=== PATIENT | male | born 1970 | race African-American/Black ===

== ENCOUNTER 2016-08-31 14:22 | Outpatient (RCR) ==
[2016-05-19 14:08] VITALS: BMI 31.0
--- NOTE | 2016-09-02 16:37 | RS.OPPTDN ---
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 States he does not know why he is coming today because he is not any better. Reports continued pain and lack of strength to the L UE. He says he needs to reschedule an appt with MD. Pain Assessment - Pain Description Pain Location: left lateral epicondyle, forearm Pain Description: increased fatigue Current Pain Intensity: elevated - Treatment Modality: Ultrasound Parameters/Method Applied: phonophoresis with hydrocortisone @ 1.5 w/cm2 x 12 mins to the L lateral lower arm, lateral epicondyle, and just proximal to the lateral epicondyle. Also, performed x 5 mins pulsed @ 0.8 w/cm2. Interventions - Exercise/Activities/Manual Therapy Exercises/Activities: Reviewed HEP. Reassessed sewer pipe sorter at now 5-10# 2 trials at 2nd position. This is worse than last measurement last week. Manual Therapy: na HOME EXERCISE PROGRAM: Passive stretches to wrist extensors,and self reji friction massage. - Charges Total Direct Minutes: 20 Total Treatment Time: 20 Procedures billed for this date of service:: usx1 Assessment: Patient with no significant change in pain or strength. He maintains inability to perform weights/exercises for prolonged amount of time to simulate work duties without flare of pain or needing to stop. Freight Flagman strength is worse today than last measurement last week. Freight Flagman is taken before exercise on treatment dates and after to verify any improvement. Patient very frustrated and wants to return to work, but acknowledges he needs to be able to perform far more strengthening exercises and duties than what he is able to beatrice presently. We have modified treatments several times without justification to continue at this time. He needs to return to the MD to determine what other treatments/procedures need to be performed. Patient Education: Education of diagnosis, Body/Joint mechanics, Home Exercise Program, Home Safety, Activity Modification, Education of Plan of Care Short Term Goals Goal #1: Swelling at left elbow decreased to minimal. Goal to be met by: 07/03/16 Progress towards Goal:: Met Goal #2: Left sewer pipe sorter strength increased to 15 lbs. Goal to be met by: 07/03/16 Progress towards Goal:: Regressing Goal #3: Pain in left elbow with light activity decreased to <5/10. Goal to be met by: 07/03/16 Progress towards Goal:: Regressing Goal #4: Patient independent and compliant with basic HEP. Goal to be met by: 07/03/16 Progress towards Goal:: Partially Met (due to pain) Shirt Maker Goals Goal #1: Patient able to use left LE for all selfcare and ADL's without pain. Goal to be met by: 09/11/16 Progress towards goal: Progressing Goal #2: Score on UE Functional scale to demontrates <20% impairment. Goal to be met by: 09/11/16 Progress towards goal: Progressing Goal #3: Left UE to demontrate functional muscle strength to perform all activities. Goal to be met by: 09/11/16 Progress towards goal: Progressing Goal #4: Patient able to return to work without limitation. Goal to be met by: 09/11/16 Progress towards goal: No Change Plan PLAN OF CARE EXPIRES ON:: 09/11/16 ORDER # VISITS AND/OR THROUGH DATE: 09/11/16 PLAN: Plan for Discharge
--- NOTE | 2016-09-28 14:25 | RS.QUICKDC ---
Discharge from PT Date of Discharge: 09/28/16 Number of Visits: 20 Reason for Discharge: Patient had completed original orders and a continuation approved by work comp. Patient had no significant improvement regarding the L elbow. He maintained moderate pain and weakness despite modification of treatment from u/s, class 4 laser, and phonophoresis using hydrocortisone. He had received stretching and strengthening exercises for the L UE including tbands, weights, and static gripping to simulate particular job duties he was concerned about. 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 He was adament against surgery and local injection and we had come to a point in which he had plateaued. Treatment was discontinued at that time and we did refer him back to his orthopaedic for further assessment. See daily notes for specific treatment.
== END 2016-09-29 ==
PROVIDERS: ATTEND Orthopaedic Surgery
DX: M77.12 Lateral epicondylitis, left elbow (principal)

== ENCOUNTER → 2016-10-27 | Outpatient (RCR) ==
[2016-05-19 14:08] VITALS: BMI 31.0
--- NOTE | 2016-10-28 13:55 | RS.OPPTEV2 ---
Date of Note: 10/27/16 Visit #: 1 Date of Evaluation: 10/27/16 Payer Source: Workman's Comp Date of Onset/Injury/Change in Status: 04/29/16 Treatment Diagnosis: Left lateral epicondylitis of the left elbow, left elbow pain History of Condition/Mechanism of Injury:: Patient states he hurt the left UE while at work. States he was picking up a grate and a hook broke and it jerked his arm. He received Outpatient PT in our department May-July 2016 without full resolution of symptoms. Since then he has received a cortisone injection in the left elbow. Prior Level of Function.....Patient was independent with: ADL's, Self Care, Work /Vocation, Caregiving, Ambulation/Mobility, Community Integration/Access Functional Limitations: Sleep, Self Care, ADL's, Reaching, Pushing, Pulling, Lifting, Carrying, Community Access/Integration Current Subjective/complaints:: Patient reports continued left elbow pain with any lifting. He is left hand dominant and states he has pain when performing selfcare and ADL's with the left UE ,due to pain. Reports the injection he received helped slightly. Reports he continues to wear his brace. States wearing the brace is the only way he can sleep at night. He is unable to lay on the left arm. He denies tingling or numbness in the left elbow, forearm, or hand. States most of his discomfort is at the elbow and down into the forearm. Reports an area of tenderness at the elbow. He has continued to ice the elbow , which helps decrease his pain. States he has had a second MRI of the elbow, but his does not recall exactly what the doctor said it showed. Treatment Side (optional): Left Medical History Medical History: Hypertension, Diabetes Smoking Status: Current some day smoker Diagnostic Testing/Imaging:: Called for copy of 2nd MRI of the left elbow. Patient's Goals: His goal is to get relief of left elbow pain and to be able to use the left UE without pain. Pain Assessment - Pain Description Pain Location: left lateral epicondyle, forearm Pain Description: Sharp (at times), Aching Current Pain Intensity: 6/10 Worst Pain Intensity: 10/10 Functional Outcome Measure UE Functional Index: 56 (56/80=30% impairment) - G Codes & Severity Modifier G Codes & Modifier: NA Source of G Code score: NA Observation - Observation Handedness: Left Girth Measurement Upper: Lateral epicondyle: Left 29 cm, right 28.5 cm Elbow ROM: Right WFL's Elbow Muscle Strength: Right WFL's - Left Elbow ROM Comments: left elbow flexion and extension WFL's. Supination and pronation is WFL's with discomfort throughout supination and at end-range pronation. - Left Elbow Strength Left Elbow Extension: 4+ Good + (slight discomfort with resistance) Left Elbow Flexion: 4+ Good + Left Forearm Pronation: 4 Good Left Forearm Supination: 4 Good Comments: Slight discomfort reported with resisted supination and pronation. Wrist ROM: Bilaterally WFL's - Left Wrist Strength Left Wrist Extension: 4 Good Left Wrist Flexion: 4 Good Quiller Operator Strength Left Hand Quiller Operator Strength: 8 lbs. Dynamometer Testing Position: 2nd Position Palpation Comments:: Patient reports tenderness over the left lateral epicondyle and just superior to the lateral epicondyle. Sensation - Sensation Right Upper Extremity: Intact/Normal Left Upper Extremity: Intact/Normal - Heat/Cryotherapy Treatment: Cryotherapy (X 4 mins) Comments:: ice massage over the left lateral epicondyle Interventions - Exercise/Activities/Manual Therapy Exercises/Activities: NA Manual Therapy: Received Transverse Friction massage over wrist extensor tendons at the lateral epicondyle X 7 mins. HOME EXERCISE PROGRAM: None given at evaluation. - Charges Total Direct Minutes: 55 mins Total Treatment Time: 55 mins Procedures billed for this date of service:: RACHEL Rowell, manual therapy Assessment Assessment: Patient presents with continued left elbow pain. He exhibits decreased wrist and belt fixer strength. He reports pain with any lifting using the left UE. He demonstrates potential to benefit from manual therapy of Transverse Friction Massage and strengthening to increase functional use of left UE. Patient Education: Education of diagnosis, Body/Joint mechanics, Home Safety, Education of Plan of Care Rehab Potential: Good Short Term Goals Goal #1: Pt independent with HEP. Goal to be met by: 11/11/16 Goal #2: Left belt fixer strength increased to 20 lbs. Goal to be met by: 11/11/16 Goal #3: Pain in left elbow with light activity decreased to <2/10. Goal to be met by: 11/11/16 Goal #4: Left wrist strength 4+/5. Goal to be met by: 11/11/16 Fdc Goals Goal #1: Patient able to use left LE for all selfcare and ADL's without pain. Goal to be met by: 12/02/16 Goal #2: Score on UE Functional scale to demontrates <10% impairment. Goal to be met by: 12/02/16 Goal #3: Left UE to demontrate functional muscle strength to perform all activities. Goal to be met by: 12/02/16 Goal #4: Patient able to return to work without limitation. Goal to be met by: 12/02/16 Plan - Treatment to be Provided Procedures: Therapeutic Exercises, Therapeutic Activity, Manual Therapy, Patient Education Modalities: Electrical Stimulation, Ultrasound/Phonophoresis, Class IV Laser, Cryotherapy - Treatment Plan Frequency: 3 X week Duration: 4 weeks ORDER # VISITS AND/OR THROUGH DATE: 12/02/16 - Treatment Code (1) Elbow pain Qualifiers: Laterality: left Qualified Description: Left elbow pain Qualifier Code(s): (M25.522) Pain in left elbow (2) Decreased belt fixer strength of left hand Comments: M62.81
== END ==
PROVIDERS: ATTEND Orthopaedic Surgery
DX: M77.12 Lateral epicondylitis, left elbow (principal)

== ENCOUNTER 2016-11-20 09:00 | Outpatient (RCR) ==
[2016-05-19 14:08] VITALS: BMI 31.0
--- NOTE | 2016-10-29 11:12 | RS.OPPTDN ---
Subjective Date of Note: 10/29/16 Visit #: 2 Date of Evaluation: 10/27/16 Payer Source: Workman's Comp Treatment Diagnosis: Left lateral epicondylitis of the left elbow Current Subjective/complaints:: Patient states left elbow is sore and stiff in the morning. Reports discomfort during friction massage and with stretching. Pain Assessment - Pain Description Pain Location: left lateral epicondyle, forearm Pain Description: sore - Heat/Cryotherapy Treatment: Cryotherapy (ice massage over lateral epicondyle/wrist extensor tendons X 5 mins) Interventions - Exercise/Activities/Manual Therapy Exercises/Activities: Passive stretchinig to left wrist extensors following transverse friction massage. Total minutes of Exercise: X 4 mins Manual Therapy: Transverse Friction Massage X 14 mins to left wrist extensor tendons at lateral epicondyle. HOME EXERCISE PROGRAM: Passive stretches to wrist extensors,and self reji friction massage. - Charges Total Direct Minutes: 18 mins Total Treatment Time: 23 mins Procedures billed for this date of service:: Manual therapy, CP Assessment: Patient tolerates friction massage well, although does demonstrate facial grimacing and reports discomfort. Continued treatment should help decrease his pain with use of the left UE. Patient Education: Education of diagnosis, Body/Joint mechanics, Education of Plan of Care Short Term Goals Goal #1: Pt independent with HEP. Goal to be met by: 11/11/16 Goal #2: Left lawn service manager strength increased to 20 lbs. Goal to be met by: 11/11/16 Goal #3: Pain in left elbow w light activity decreased to <2/10. Goal to be met by: 11/11/16 Goal #4: Left wrist strength 4+/5. Goal to be met by: 11/11/16 Design Engineer Agricultural Equipment Goals Goal #1: Patient able to use left LE for all selfcare and ADL's without pain. Goal to be met by: 12/02/16 Goal #2: Score on UE Functional scale to demontrates <10% impairment. Goal to be met by: 12/02/16 Goal #3: Left UE to demontrate functional muscle strength to perform all activities. Goal to be met by: 12/02/16 Goal #4: Patient able to return to work without limitation. Goal to be met by: 12/02/16 Plan PLAN OF CARE EXPIRES ON:: 12/02/16 ORDER # VISITS AND/OR THROUGH DATE: 12/02/16 PLAN: Continue Plan of Care
--- NOTE | 2016-10-30 11:24 | RS.OPPTDN ---
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 Pain Assessment - Pain Description Pain Location: left lateral epicondyle, forearm Pain Description: sore Current Pain Intensity: not rated today - Heat/Cryotherapy Treatment: Cryotherapy (ice massage x 10 mins. prior to manual therapy) Interventions - Exercise/Activities/Manual Therapy Exercises/Activities: NA Total minutes of Exercise: 0 Manual Therapy: Transverse Friction Massage X 15 mins to left wrist extensor tendons at lateral epicondyle,combined with 10 more mins. of wrist supination/ pronation ,gripping motion. Total minutes of Manual Therapy: 25 HOME EXERCISE PROGRAM: Passive stretches to wrist extensors,and self reji friction massage. - Charges Total Direct Minutes: 25 Total Treatment Time: 35 Procedures billed for this date of service:: cp,manual therapy 2 Assessment: Patient reports tenderness with palpation of the olecranon fossa today,more than the extensor tendon region.He tolerates resisted wrist extension with report of moderate pain today,less pain with pronation per his report.He is attentive to recommendations regarding pain control and HEP. Patient Education: Education of diagnosis, Body/Joint mechanics, Home Exercise Program, Home Safety, Activity Modification, Education of Plan of Care Patient demonstrates compliance with HEP?: Yes Short Term Goals Goal #1: Pt independent with HEP. Goal to be met by: 11/11/16 Progress towards Goal:: Progressing Goal #2: Left able bodied seaman strength increased to 20 lbs. Goal to be met by: 11/11/16 Goal #3: Pain in left elbow w light activity decreased to <2/10. Goal to be met by: 11/11/16 Goal #4: Left wrist strength 4+/5. Goal to be met by: 11/11/16 Bead Trimmer Goals Goal #1: Patient able to use left LE for all selfcare and ADL's without pain. Goal to be met by: 12/02/16 Goal #2: Score on UE Functional scale to demontrates <10% impairment. Goal to be met by: 12/02/16 Goal #3: Left UE to demontrate functional muscle strength to perform all activities. Goal to be met by: 12/02/16 Goal #4: Patient able to return to work without limitation. Goal to be met by: 12/02/16 Plan PLAN OF CARE EXPIRES ON:: 12/02/16 ORDER # VISITS AND/OR THROUGH DATE: 12/02/16 PLAN: Continue Plan of Care
--- NOTE | 2016-11-02 11:55 | RS.OPPTDN ---
Subjective Date of Note: 11/02/16 Visit #: 4 Date of Evaluation: 10/27/16 Payer Source: Workman's Comp Treatment Diagnosis: Left lateral epicondylitis of the left elbow Current Subjective/complaints:: Reports the L elbow is throbbing more today. Pain Assessment - Pain Description Pain Location: left lateral epicondyle, forearm Pain Description: sore Current Pain Intensity: not rated today - Heat/Cryotherapy Treatment: Cryotherapy (15 mins. after exercises) Interventions - Exercise/Activities/Manual Therapy Exercises/Activities: 30 mins total,beginning with dethistler operator strength testing,R dethistler operator @ 85 #,L dethistler operator strength @ 20#.Digiflex @ 3#,increased to 9#,multiple reps.Wrist roll-up with 4# ,multiple reps.HEP review. Total minutes of Exercise: 30 Manual Therapy: NA Total minutes of Manual Therapy: 0 HOME EXERCISE PROGRAM: Passive stretches to wrist extensors,and self reji friction massage. - Charges Total Direct Minutes: 30 Total Treatment Time: 45 Procedures billed for this date of service:: cp,ex 2 Assessment: Patient's L dethistler operator strenght increased since evaluation,but he continues to report increased pain as the exercises progress,along with being tender to palpate the common extensor tendon site and the olecranon fossa. Patient Education: Body/Joint mechanics, Home Exercise Program, Education of Plan of Care Patient demonstrates compliance with HEP?: Yes Short Term Goals Goal #1: Pt independent with HEP. Goal to be met by: 11/11/16 Progress towards Goal:: Progressing Goal #2: Left dethistler operator strength increased to 20 lbs. Goal to be met by: 11/11/16 Progress towards Goal:: Met Goal #3: Pain in left elbow w light activity decreased to <2/10. Goal to be met by: 11/11/16 Goal #4: Left wrist strength 4+/5. Goal to be met by: 11/11/16 Progress towards Goal:: Progressing Switchboard Mechanic Goals Goal #1: Patient able to use left LE for all selfcare and ADL's without pain. Goal to be met by: 12/02/16 Goal #2: Score on UE Functional scale to demontrates <10% impairment. Goal to be met by: 12/02/16 Goal #3: Left UE to demontrate functional muscle strength to perform all activities. Goal to be met by: 12/02/16 Goal #4: Patient able to return to work without limitation. Goal to be met by: 12/02/16 Plan PLAN OF CARE EXPIRES ON:: 12/02/16 ORDER # VISITS AND/OR THROUGH DATE: 12/02/16 PLAN: Continue Plan of Care
--- NOTE | 2016-11-04 12:01 | RS.OPPTDN ---
Subjective Date of Note: 11/04/16 Visit #: 5 Date of Evaluation: 10/27/16 Payer Source: Workman's Comp Treatment Diagnosis: Left lateral epicondylitis of the left elbow Current Subjective/complaints:: Reports the pain is about the same,still has morning stiffness and occasional tingling in the L forearm. Pain Assessment - Pain Description Pain Location: left lateral epicondyle, forearm Pain Description: Tightness, Radiating, Throbbing, Aching Pain Description: sore Current Pain Intensity: not rated today - Heat/Cryotherapy Treatment: Cryotherapy (15 mins. after exercises) Interventions - Exercise/Activities/Manual Therapy Exercises/Activities: 30 mins total,beginning with cream buyer strength testing,R cream buyer @ 85 #,L cream buyer strength @ 20#.Digiflex @ 3#,increased to 9#,multiple reps.Wrist roll-up with 4# ,multiple reps.L cream buyer strength @ 10 # after exercises. Total minutes of Exercise: 30 Manual Therapy: NA HOME EXERCISE PROGRAM: Passive stretches to wrist extensors,and self reji friction massage. - Charges Total Direct Minutes: 30 Total Treatment Time: 50 Procedures billed for this date of service:: ex 2,cp Assessment: Patient has significantly less cream buyer strength today after exercises.He still has tenderness to palpate the L elbow and common extensor tendon site.He is very attentive to recommendations regarding joint protection and pain management. Patient Education: Education of diagnosis, Body/Joint mechanics, Home Exercise Program, Home Safety, Activity Modification, Education of Plan of Care Patient demonstrates compliance with HEP?: Yes Short Term Goals Goal #1: Pt independent with HEP. Goal to be met by: 11/11/16 Progress towards Goal:: Partially Met Goal #2: Left cream buyer strength increased to 20 lbs. Goal to be met by: 11/11/16 (not consistent today lesens after exercises) Progress towards Goal:: Regressing Goal #3: Pain in left elbow w light activity decreased to <2/10. Goal to be met by: 11/11/16 Progress towards Goal:: No Change Goal #4: Left wrist strength 4+/5. Goal to be met by: 11/11/16 Progress towards Goal:: Partially Met Stick Roller Goals Goal #1: Patient able to use left LE for all selfcare and ADL's without pain. Goal to be met by: 12/02/16 Progress towards goal: No Change Goal #2: Score on UE Functional scale to demontrates <10% impairment. Goal to be met by: 12/02/16 Goal #3: Left UE to demontrate functional muscle strength to perform all activities. Goal to be met by: 12/02/16 Goal #4: Patient able to return to work without limitation. Goal to be met by: 12/02/16 Plan PLAN OF CARE EXPIRES ON:: 12/02/16 ORDER # VISITS AND/OR THROUGH DATE: 12/02/16 PLAN: Continue Plan of Care
--- NOTE | 2016-11-06 11:24 | RS.OPPTDN ---
Subjective Date of Note: 11/06/16 Visit #: 6 Date of Evaluation: 10/27/16 Payer Source: Workman's Comp Treatment Diagnosis: Left lateral epicondylitis of the left elbow Current Subjective/complaints:: Patient reports the pain today is also in the biceps and up into the L shoulder. Pain Assessment - Pain Description Pain Location: left lateral epicondyle, forearm Pain Description: Tightness, Radiating, Throbbing, Aching Pain Description: sore Current Pain Intensity: not rated today - Heat/Cryotherapy Treatment: Cryotherapy (15 mins. prior to manual therapy) Interventions - Exercise/Activities/Manual Therapy Exercises/Activities: NA Total minutes of Exercise: 0 Manual Therapy: 25 mins. cross friction to common extensor tendon site after ice massage. Total minutes of Manual Therapy: 25 HOME EXERCISE PROGRAM: Passive stretches to wrist extensors,and self cross- friction massage. - Charges Total Direct Minutes: 25 Total Treatment Time: 40 Procedures billed for this date of service:: cp,manual 2 Assessment: No significant change today,continues to have tenderness to palpate the olecranon fossa and the common extensor tendon site. Patient Education: Education of diagnosis, Body/Joint mechanics, Home Exercise Program, Home Safety, Activity Modification, Education of Plan of Care Patient demonstrates compliance with HEP?: Yes Short Term Goals Goal #1: Pt independent with HEP. Goal to be met by: 11/11/16 Progress towards Goal:: Partially Met Goal #2: Left parachute crown sewer strength increased to 20 lbs. Goal to be met by: 11/11/16 (N/A today) Goal #3: Pain in left elbow w light activity decreased to <2/10. Goal to be met by: 11/11/16 Progress towards Goal:: No Change Goal #4: Left wrist strength 4+/5. Goal to be met by: 11/11/16 Progress towards Goal:: Partially Met Degreasing Solution Mixer Goals Goal #1: Patient able to use left LE for all selfcare and ADL's without pain. Goal to be met by: 12/02/16 Progress towards goal: No Change Goal #2: Score on UE Functional scale to demontrates <10% impairment. Goal to be met by: 12/02/16 Goal #3: Left UE to demontrate functional muscle strength to perform all activities. Goal to be met by: 12/02/16 Goal #4: Patient able to return to work without limitation. Goal to be met by: 12/02/16 Plan PLAN OF CARE EXPIRES ON:: 12/02/16 ORDER # VISITS AND/OR THROUGH DATE: 12/02/16 PLAN: Continue Plan of Care
--- NOTE | 2016-11-10 11:19 | RS.OPPTDN ---
Subjective Date of Note: 11/10/16 Visit #: 7 Date of Evaluation: 10/27/16 Payer Source: Workman's Comp Treatment Diagnosis: Left lateral epicondylitis of the left elbow Current Subjective/complaints:: Patient reports no change in the L elbow. Pain Assessment - Pain Description Pain Location: left lateral epicondyle, forearm Pain Description: Tightness, Radiating, Throbbing, Aching Pain Description: sore Current Pain Intensity: not rated today - Heat/Cryotherapy Treatment: Cryotherapy (15 mins.ice massage prior to manual therapy) Interventions - Exercise/Activities/Manual Therapy Exercises/Activities: 10 mins. passive stretches to L wrist extensors/flexors Total minutes of Exercise: 10 Manual Therapy: 20 mins. cross friction to common extensor tendon site after ice massage. Total minutes of Manual Therapy: 20 HOME EXERCISE PROGRAM: Passive stretches to wrist extensors,and self cross- friction massage. - Charges Total Direct Minutes: 45 Total Treatment Time: 45 Procedures billed for this date of service:: cp,manual,ex 1 Assessment: Patient continues to be tender to palpate the L olecranon fossa area ,and the common extensor tendon site.He is compliant to HEP as tolerated. Patient Education: Education of Plan of Care Patient demonstrates compliance with HEP?: Yes Short Term Goals Goal #1: Pt independent with HEP. Goal to be met by: 11/11/16 Progress towards Goal:: Partially Met Goal #2: Left sheet metal former strength increased to 20 lbs. Goal to be met by: 11/11/16 (24) Progress towards Goal:: Met Goal #3: Pain in left elbow w light activity decreased to <2/10. Goal to be met by: 11/11/16 Progress towards Goal:: No Change Goal #4: Left wrist strength 4+/5. Goal to be met by: 11/11/16 Progress towards Goal:: Partially Met Drum Filler Goals Goal #1: Patient able to use left LE for all selfcare and ADL's without pain. Goal to be met by: 12/02/16 Progress towards goal: No Change Goal #2: Score on UE Functional scale to demontrates <10% impairment. Goal to be met by: 12/02/16 Goal #3: Left UE to demontrate functional muscle strength to perform all activities. Goal to be met by: 12/02/16 (increased sheet metal former strength) Progress towards goal: Progressing Goal #4: Patient able to return to work without limitation. Goal to be met by: 12/02/16 Plan PLAN OF CARE EXPIRES ON:: 12/02/16 ORDER # VISITS AND/OR THROUGH DATE: 12/02/16 PLAN: Continue Plan of Care
--- NOTE | 2016-11-11 11:27 | RS.OPPTDN ---
Subjective Date of Note: 11/11/16 Visit #: 8 Date of Evaluation: 10/27/16 Payer Source: Workman's Comp Treatment Diagnosis: Left lateral epicondylitis of the left elbow Current Subjective/complaints:: Patient reports his 4th and 5th fingers are tingling this mornng.He reports temporary relief only from yesterday's PT session. Pain Assessment - Pain Description Pain Location: left lateral epicondyle, forearm Pain Description: Tightness, Radiating, Throbbing, Aching Pain Description: sore Current Pain Intensity: not rated today - Heat/Cryotherapy Treatment: Cryotherapy (15 mins. ice massage prior to manual therapy) Interventions - Exercise/Activities/Manual Therapy Exercises/Activities: N/A Total minutes of Exercise: 0 Manual Therapy: 25 mins. cross friction to common extensor tendon site after ice massage. Total minutes of Manual Therapy: 25 HOME EXERCISE PROGRAM: Passive stretches to wrist extensors,and self cross- friction massage. - Charges Total Direct Minutes: 25 Total Treatment Time: 40 Procedures billed for this date of service:: cp,manual therapy 2 Assessment: No significant change today,but patient continues to be very compliant to all recommendations regarding HEP,joint protection ,and pain management. Patient Education: Education of diagnosis, Body/Joint mechanics, Home Exercise Program, Home Safety, Activity Modification, Education of Plan of Care Patient demonstrates compliance with HEP?: Yes Short Term Goals Goal #1: Pt independent with HEP. Goal to be met by: 11/11/16 Progress towards Goal:: Partially Met Goal #2: Left carpet technician strength increased to 20 lbs. Goal to be met by: 11/11/16 (24) Progress towards Goal:: Met Goal #3: Pain in left elbow w light activity decreased to <2/10. Goal to be met by: 11/11/16 Progress towards Goal:: No Change Goal #4: Left wrist strength 4+/5. Goal to be met by: 11/11/16 Progress towards Goal:: Partially Met [facility] Goals Goal #1: Patient able to use left LE for all selfcare and ADL's without pain. Goal to be met by: 12/02/16 Progress towards goal: No Change Goal #2: Score on UE Functional scale to demontrates <10% impairment. Goal to be met by: 12/02/16 Goal #3: Left UE to demontrate functional muscle strength to perform all activities. Goal to be met by: 12/02/16 (increased carpet technician strength) Progress towards goal: No Change Goal #4: Patient able to return to work without limitation. Goal to be met by: 12/02/16 Progress towards goal: Not Met Plan PLAN OF CARE EXPIRES ON:: 12/02/16 ORDER # VISITS AND/OR THROUGH DATE: 12/02/16 PLAN: Continue Plan of Care
--- NOTE | 2016-11-13 11:24 | RS.OPPTDN ---
Subjective Date of Note: 11/13/16 Visit #: 9 Date of Evaluation: 10/27/16 Payer Source: Workman's Comp Treatment Diagnosis: Left lateral epicondylitis of the left elbow Current Subjective/complaints:: Patient reports the L elbow is hurting more today,as compared to yesterday. Pain Assessment - Pain Description Pain Location: left lateral epicondyle, forearm Pain Description: Tightness, Radiating, Throbbing, Aching Pain Description: sore Current Pain Intensity: 8/10 - Heat/Cryotherapy Treatment: Cryotherapy (20 mins. ice massage to L elbow) Interventions - Exercise/Activities/Manual Therapy Exercises/Activities: N/A Total minutes of Exercise: 0 Manual Therapy: 20 mins. cross friction to common extensor tendon site after ice massage. Total minutes of Manual Therapy: 20 HOME EXERCISE PROGRAM: Passive stretches to wrist extensors,and self cross- friction massage. - Objective Findings Observations,measurements,etc.: L writing manager strength decreased to 18# today,was 24-25 # when last tested. - Charges Total Direct Minutes: 20 Total Treatment Time: 40 Procedures billed for this date of service:: cp,manual Assessment: Patient has less writing manager strength today when tested,increased tenderness to palpate the lateral epicondyle area and has trigger point tenderness in the wrist extensors.He is compliant to exercises,when he can tolerate them.He reports being able to lift objects,such as a gallon of milk, but when trying to pour the milk and rotating the forearm ,he has intense pain and has difficulty maintaining a strong writing manager. Patient Education: Body/Joint mechanics, Home Safety Patient demonstrates compliance with HEP?: Yes Short Term Goals Goal #1: Pt independent with HEP. Goal to be met by: 11/11/16 Progress towards Goal:: Partially Met Goal #2: Left writing manager strength increased to 20 lbs. Goal to be met by: 11/11/16 (24) Progress towards Goal:: Met Goal #3: Pain in left elbow w light activity decreased to <2/10. Goal to be met by: 11/11/16 (increased pain today) Progress towards Goal:: Regressing Goal #4: Left wrist strength 4+/5. Goal to be met by: 11/11/16 Progress towards Goal:: Partially Met Comments:: wrist strength improved ,but writing manager strength less Electrophysiology Nurse Practitioner Goals Goal #1: Patient able to use left LE for all selfcare and ADL's without pain. Goal to be met by: 12/02/16 Progress towards goal: No Change Goal #2: Score on UE Functional scale to demontrates <10% impairment. Goal to be met by: 12/02/16 Goal #3: Left UE to demontrate functional muscle strength to perform all activities. Goal to be met by: 12/02/16 (increased writing manager strength) Progress towards goal: No Change Goal #4: Patient able to return to work without limitation. Goal to be met by: 12/02/16 Progress towards goal: Not Met Plan PLAN OF CARE EXPIRES ON:: 12/02/16 ORDER # VISITS AND/OR THROUGH DATE: 12/02/16 PLAN: Continue Plan of Care (See patient next week,has follow-up appt. with on 11-23-16.)
--- NOTE | 2016-11-16 11:08 | RS.OPPTDN ---
Subjective Date of Note: 11/16/16 Visit #: 10 Date of Evaluation: 10/27/16 Payer Source: Workman's Comp Treatment Diagnosis: Left lateral epicondylitis of the left elbow Current Subjective/complaints:: Patient reports yesterday was very painful, thought about coming to the ER for relief,but took pain meds. and rested the entire day,avoided using the L arm. Pain Assessment - Pain Description Pain Location: left lateral epicondyle, forearm Pain Description: Tightness, Radiating, Throbbing, Aching Pain Description: sore Current Pain Intensity: 7-8/10 Other Comments regarding Pain:: Pain increases with wrist pronation ,especially with holding an object,such as a gallon of milk. - Heat/Cryotherapy Treatment: Cryotherapy (15 mins. ice massage ,prior to manual therapy.) Interventions - Exercise/Activities/Manual Therapy Exercises/Activities: N/A Total minutes of Exercise: 0 Manual Therapy: 15 mins. cross friction to common extensor tendon site after ice massage. Total minutes of Manual Therapy: 15 HOME EXERCISE PROGRAM: Passive stretches to wrist extensors,and self cross- friction massage. - Objective Findings Observations,measurements,etc.: L roofing supervisor strength 18# today(same as last session). - Charges Total Direct Minutes: 15 Total Treatment Time: 30 Procedures billed for this date of service:: cp,manual therapy. Assessment: Patient regressing today,increased tendeness to palpate the common extensor tendon site.,along with the olecranon fossa region. Patient Education: Education of Plan of Care Patient demonstrates compliance with HEP?: Yes Short Term Goals Goal #1: Pt independent with HEP. Goal to be met by: 11/11/16 Progress towards Goal:: Partially Met Goal #2: Left roofing supervisor strength increased to 20 lbs. Goal to be met by: 11/11/16 (varies due to pain,decreased to 18# today) Progress towards Goal:: Regressing Goal #3: Pain in left elbow w light activity decreased to <2/10. Goal to be met by: 11/11/16 (increased pain today) Progress towards Goal:: Regressing Goal #4: Left wrist strength 4+/5. Goal to be met by: 11/11/16 Progress towards Goal:: Partially Met Skilled Nursing Goals Goal #1: Patient able to use left LE for all selfcare and ADL's without pain. Goal to be met by: 12/02/16 Progress towards goal: No Change Goal #2: Score on UE Functional scale to demontrates <10% impairment. Goal to be met by: 12/02/16 Goal #3: Left UE to demontrate functional muscle strength to perform all activities. Goal to be met by: 12/02/16 (increased roofing supervisor strength) Progress towards goal: No Change Goal #4: Patient able to return to work without limitation. Goal to be met by: 12/02/16 Progress towards goal: Not Met Plan PLAN OF CARE EXPIRES ON:: 12/02/16 ORDER # VISITS AND/OR THROUGH DATE: 12/02/16 PLAN: Continue Plan of Care
--- NOTE | 2016-11-18 12:05 | RS.OPPTDN ---
Subjective Date of Note: 11/18/16 Visit #: 11 Date of Evaluation: 10/27/16 Payer Source: Workman's Comp Treatment Diagnosis: Left lateral epicondylitis of the left elbow Current Subjective/complaints:: Reports moderate pain ,still reports difficulty with gripping and maintaining the health communications specialist. Pain Assessment - Pain Description Pain Location: left lateral epicondyle, forearm Pain Description: Tightness, Radiating, Throbbing, Aching Pain Description: sore Current Pain Intensity: 5/10 - Heat/Cryotherapy Treatment: Cryotherapy (20 mins. ice massage prior to manual therapy.) Interventions - Exercise/Activities/Manual Therapy Exercises/Activities: N/A Total minutes of Exercise: 0 Manual Therapy: 25 mins. cross friction to common extensor tendon site after ice massage. Total minutes of Manual Therapy: 25 HOME EXERCISE PROGRAM: Passive stretches to wrist extensors,and self cross- friction massage. - Charges Total Direct Minutes: 25 Total Treatment Time: 45 Procedures billed for this date of service:: cp,manual therapy 2 Assessment: No significant change today,continues to be tender upon palpation of Lcommon extensor tenson site and lateral epicondyle.He has increased pain today with resisted wrist extension.He has good understanding of HEP,joint protection,is compliant to wearing the wrist brace as needed. Patient Education: Education of diagnosis, Body/Joint mechanics, Home Exercise Program, Home Safety, Activity Modification, Education of Plan of Care Patient demonstrates compliance with HEP?: Yes Short Term Goals Goal #1: Pt independent with HEP. Goal to be met by: 11/11/16 Progress towards Goal:: Partially Met Goal #2: Left health communications specialist strength increased to 20 lbs. Goal to be met by: 11/11/16 (23# today,but painful) Progress towards Goal:: Progressing Goal #3: Pain in left elbow w light activity decreased to <2/10. Goal to be met by: 11/11/16 (increased pain today) Progress towards Goal:: No Change Goal #4: Left wrist strength 4+/5. Goal to be met by: 11/11/16 (flexion is 4+/5,extension difficult to assess due to pain) Progress towards Goal:: Partially Met Student Services Counselor Goals Goal #1: Patient able to use left LE for all selfcare and ADL's without pain. Goal to be met by: 12/02/16 Progress towards goal: No Change Goal #2: Score on UE Functional scale to demontrates <10% impairment. Goal to be met by: 12/02/16 Goal #3: Left UE to demontrate functional muscle strength to perform all activities. Goal to be met by: 12/02/16 (increased health communications specialist strength) Progress towards goal: No Change Goal #4: Patient able to return to work without limitation. Goal to be met by: 12/02/16 Progress towards goal: Not Met Plan PLAN OF CARE EXPIRES ON:: 12/02/16 ORDER # VISITS AND/OR THROUGH DATE: 12/02/16 PLAN: Continue Plan of Care
--- NOTE | 2016-11-20 10:34 | RS.OPPTDN ---
Subjective Date of Note: 11/20/16 Visit #: 12 Date of Evaluation: 10/27/16 Payer Source: Workman's Comp Treatment Diagnosis: Left lateral epicondylitis of the left elbow Current Subjective/complaints:: Reports no change overall in the L forearm/ elbow area.He reports very temporary relief from PT sessions. Pain Assessment - Pain Description Pain Location: left lateral epicondyle, forearm Pain Description: Tightness, Radiating, Throbbing, Aching Pain Description: sore Current Pain Intensity: 5/10 - Heat/Cryotherapy Treatment: Cryotherapy (15 mins. ice masage prior to manual therapy) Interventions - Exercise/Activities/Manual Therapy Exercises/Activities: N/A Total minutes of Exercise: 0 Manual Therapy: 15 mins. cross friction to common extensor tendon site after ice massage. Total minutes of Manual Therapy: 15 HOME EXERCISE PROGRAM: Passive stretches to wrist extensors,and self cross- friction massage. - Objective Findings Observations,measurements,etc.: UE functional score 53 today( 3 points lower than eval) indicating no change in status - Charges Total Direct Minutes: 15 Total Treatment Time: 30 Procedures billed for this date of service:: cp,manual Assessment: No change toward goals today,reports same symptoms of not maintaining a functional return checker.He continues to be very tender to palpate,has some increased difficulty with ADL,s.He has follow-up appt. Wednesday11-23-16. Patient Education: Activity Modification, Education of Plan of Care Patient demonstrates compliance with HEP?: Yes Short Term Goals Goal #1: Pt independent with HEP. Goal to be met by: 11/11/16 Progress towards Goal:: Met Goal #2: Left return checker strength increased to 20 lbs. Goal to be met by: 11/11/16 (23-25#) Progress towards Goal:: No Change Goal #3: Pain in left elbow w light activity decreased to <2/10. Goal to be met by: 11/11/16 (increased pain today) Progress towards Goal:: No Change Goal #4: Left wrist strength 4+/5. Goal to be met by: 11/11/16 (flexion is 4+/5,extension difficult to assess due to pain) Progress towards Goal:: Partially Met Head Control Clerk Goals Goal #1: Patient able to use left LE for all selfcare and ADL's without pain. Goal to be met by: 12/02/16 Progress towards goal: No Change Goal #2: Score on UE Functional scale to demontrates <10% impairment. Goal to be met by: 12/02/16 (3 points worse 53/80) Progress towards goal: Regressing Goal #3: Left UE to demontrate functional muscle strength to perform all activities. Goal to be met by: 12/02/16 (increased return checker strength) Progress towards goal: No Change Goal #4: Patient able to return to work without limitation. Goal to be met by: 12/02/16 Progress towards goal: Not Met Plan PLAN OF CARE EXPIRES ON:: 12/02/16 ORDER # VISITS AND/OR THROUGH DATE: 12/02/16 Comments:: Hold PT ,pending next Dr. hobbs.
--- NOTE | 2016-12-07 16:02 | RS.QUICKDC ---
Discharge from PT Date of Discharge: 11/27/16 Number of Visits: 12 Reason for Discharge: No contact from patient after last appt.
== END 2016-11-27 ==
PROVIDERS: ATTEND Orthopaedic Surgery
DX: M77.12 Lateral epicondylitis, left elbow (principal)

== ENCOUNTER 2017-05-05 19:14 | Emergency (ER) ==
--- NOTE | 2017-05-05 19:26 | ED.PDOC ---
General ED Provider: Dr. MAMTA INTERIANO Chief Complaint: Extremity Pain/Injury Stated Complaint: c./o left arm pain, has h/o CTS, been taking muscle relaxants not hleping, Time Seen by Physician: 19:24 Mode of Arrival: Walk-In Information Source: Patient Primary Care Provider: MAMTA INTERIANO-[facility] Nursing and Triage Documentation Reviewed and Agree: Yes Musculoskeletal Complaint Exam - Upper Extremity Complaint/Exam Location of Pain: Reports: Left, Forearm Mechanism of Injury: Reports: No known trauma Symptoms Are: Still present Timing: Constant Episodes Lasting: Days Initial Severity: Moderate Current Severity: Mild Location: Reports: Discrete Character: Reports: Aching, Throbbing Aggravating: Reports: Movement, Lifting, Flexion, Extension Alleviating: Reports: None Related History: Reports: Similar episode Non-Orthopedic Risk Factors: Reports: None DVT Risk Factors: Reports: None Septic Arthritis Risk Factors: Reports: None Related Surgical History: Reports: None Upper Extremity Findings: Absent: Swelling, Ecchymosis, Abnormal contour, Rotation Differential Diagnoses: Strain, Other (CTS) Review of Systems - Review Of Systems Constitutional: Reports: No symptoms Eyes: Reports: No symptoms Ears, Nose, Mouth, Throat: Reports: No symptoms Respiratory: Reports: No symptoms Cardiac: Reports: No symptoms GI: Reports: No symptoms : Reports: No symptoms Musculoskeletal: Reports: Joint pain, Muscle pain Skin: Reports: No symptoms Neurological: Reports: No symptoms Endocrine: Reports: No symptoms Hematologic/Lymphatic: Reports: No symptoms All Other Systems: Reviewed and Negative Past Medical History - Past Medical History Previously Healthy: Yes Endocrine: Reports: DM 2 Cardiovascular: Reports: Hypertension Respiratory: Reports: None Hematological: Reports: None Gastrointestinal: Reports: None Genitourinary: Reports: None Neuro/Psych: Reports: None Musculoskeletal: Reports: None Cancer: Reports: None - Surgical History General Surgical History: Reports: Other (left Tennis elbow repair.) - Family History Family History: Reports: None - Social History Smoking Status: Former smoker Hx Substance Use: No Alcohol Screening: None - Immunizations Tetanus Shot up to Date: No (unknown) Physical Exam - Physical Exam Appearance: Well-appearing, No pain distress, Well-nourished Eyes: ELISSA, EOMI, Conjunctiva clear ENT: Ears normal, Nose normal, Oropharynx normal Respiratory: Airway patent, Breath sounds clear, Breath sounds equal, Respirations nonlabored Cardiovascular: RRR, Pulses normal, No rub, No murmur GI/: Soft, Nontender, No masses, Bowel sounds normal, No Organomegaly Musculoskeletal: No edema, No calf tenderness, Limited ROM, Limited strength Skin: Warm, Dry, Normal color Neurological: Sensation intact, Motor intact, Reflexes intact, Cranial nerves intact, Alert, Oriented Psychiatric: Affect appropriate, Mood appropriate Critical Care Note - Critical Care Note Total Time (mins): 0 Course - Course Vital Signs: Temp Pulse Resp BP Pulse Ox 05/05/17 19:15 98.1 F 80 18 154/94 H 98 Departure - Departure Time of Disposition: 19:28 Disposition: HOME SELF-CARE Discharge Problem: Carpal tunnel syndrome on left Instructions: Arm Pain (ED) Condition: Good Pt referred to PMD for follow-up: Yes Additional Instructions: needs f/u with Ortho rest f/u [facility] Prescriptions: Cyclobenzaprine HCl [Flexeril] 5 mg PO BID #14 tablet Tramadol HCl 50 mg PO BID #14 tablet Allergies/Adverse Reactions: Allergies No Known Allergies Allergy (Verified 05/05/17 19:24) Home Medications: Ambulatory Orders Cyclobenzaprine HCl [Flexeril] 5 mg PO BID #14 tablet 05/05/17 Tramadol HCl 50 mg PO BID #14 tablet 05/05/17 Disposition Discussed With: Patient
[2017-05-05] MEDS ORDERED: TORADOL IM STA (19:28)
[2017-05-05 19:32] VITALS: BP 154/94; TEMP 98.1
== END 2017-05-05 19:58 | disposition home or self-care (01) ==
LOC: ED 19:14
DX: G56.02 Carpal tunnel syndrome, left upper limb (principal)
CPT/HCPCS: 96372; 99282

== ENCOUNTER 2017-05-27 11:47 | Outpatient (CLI) ==
[2017-05-27 12:26] LABS: ALBUMIN 3.8 g/dL (3.4-5.0); ALBUMIN/GLOBULIN RATIO 1.03; ANION GAP 13.1; BILIRUBIN,TOTAL 0.56 mg/dL (0.00-1.20); BUN/CREATININE RATIO 12.64; CALCIUM 9.8 mg/dL (8.2-10.2); CHOL/HDL RATIO 5.8 (4.5-6.4); CREATININE 0.87 mg/dL (0.60-1.10); POTASSIUM 4.1 mmol/L (3.5-5.1); TOTAL PROTEIN 7.5 g/dL (6.4-8.2)
[2017-05-27 12:43] LABS: HEMATOCRIT 44.9 % (42.0-52.0); MEAN CORPUSCULAR HEMOGLOBIN 25.9 pg (27.0-31.0); MEAN CORPUSCULAR HGB CONC 33.4 (31.8-35.4); MEAN CORPUSCULAR VOLUME 77.4 fl (80.0-94.0); WHITE BLOOD COUNT 9.64 K/ul (4.2-10.2)
[2017-05-27 12:44] LABS: BASOPHILS % (AUTO) 0.2 % (0.0-3.0); EOSINOPHILS # (AUTO) 0.5 K/ul (0.0-0.7); EOSINOPHILS % (AUTO) 0.7 % (0.0-7.0); LYMPHOCYTES # (AUTO) 6.2 K/uL (0.60-3.4); LYMPHOCYTES % (AUTO) 28.8 (10.0-50.0); MONOCYTES # (AUTO) 2.8 K/uL (0.4-2.0); MONOCYTES % (AUTO) 5.3 (0-10); NEUTROPHILS # (AUTO) 0.2 K/ul (2.0-6.9); NEUTROPHILS % (AUTO) 64.8; PLATELET COUNT 307 10^3/uL (140-440)
[2017-05-27 12:45] LABS: IMMATURE GRANULOCYTE % (AUTO) 0.2 % (0.0-5.0)
== END 2017-05-27 11:48 | disposition home or self-care (01) ==
LOC: LAB 11:47
PROVIDERS: ATTEND Nurse Practitioner Family
DX: E78.5 Hyperlipidemia, unspecified (principal); E11.9 Type 2 diabetes mellitus without complications
CPT/HCPCS: 36415; 80053; 80061; 83036; 85025

== ENCOUNTER 2017-06-10 14:02 | Outpatient (CLI) ==
[2017-06-10 14:18] LABS: ADD URINE MICROSCOPIC YES; BILIRUBIN,URINE Negative (NEGATIVE); KETONES,URINE Trace (NEGATIVE); LEUKOCYTE ESTERASE ,URINE Negative (NEGATIVE); NITRITE,URINE Negative (NEGATIVE); PH,URINE 5.5 (5-9); PROTEIN,URINE Negative (NEGATIVE); URINE, BLOOD Trace-lysed (NEGATIVE)
[2017-06-11 06:12] LABS: RAPID PLASMA REAGIN Non Reactive (Non Reactive)
== END 2017-06-10 14:03 | disposition home or self-care (01) ==
LOC: LAB 14:02
PROVIDERS: ATTEND Nurse Practitioner Family
DX: Z20.2 Contact with and (suspected) exposure to infections with a predominantly sexual mode of transmission (principal)
CPT/HCPCS: 36415; 80074; 81001; 86592; 86631; 86695; 86696; 86701; 87800

== ENCOUNTER 2018-02-09 08:49 | Emergency (ER) ==
[2018-02-09 08:53] VITALS: BP 165/98; TEMP 97.5; BMI 28.8
--- NOTE | 2018-02-09 09:36 | ED.PDOC ---
General ED Provider: Dr. LINDA QUINTEROS Chief Complaint: Shoulder Pain/Injury Stated Complaint: left shoulder/neck pain Time Seen by Physician: 09:00 (shanell present at all times denied chest pain. pain in accentuated with left upper ext movements) Mode of Arrival: Walk-In Information Source: Patient Exam Limitations: No limitations (denied injury) Primary Care Provider: JERRY CALDERON Nursing and Triage Documentation Reviewed and Agree: Yes Reviewed sepsis parameters & appropriate labs ordered?: Yes System Inflammatory Response Syndrome: Not Applicable Sepsis Protocol: For patient's 13 years and over: Temp is 96.8 and below OR 101 and greater Pulse >90 BPM Resp >20/minute Acutely Altered Mental Status Are patient's symptoms suggestive of a new infection, such as: -Pneumonia -Skin, Soft Tissue -Endocarditis -UTI -Bone, Joint Infection -Implantable Device -Acute Abdominal Infection -Wound Infection -Meningitis -Blood Stream Catheter Infection -Unknown Musculoskeletal Complaint Exam - Upper Extremity Complaint/Exam Location of Pain: Reports: Left, Shoulder Mechanism of Injury: Reports: No known trauma, Other (pian with arm movement denied chest pain) Onset/Duration: 2 days ago Symptoms Are: Still present Timing: Constant Episodes Lasting: Days (x2) Initial Severity: Moderate Current Severity: Moderate Location: Reports: Discrete Character: Reports: Aching Aggravating: Reports: Movement, Lifting, Flexion, Extension, Internal rotation, External rotation, Abduction Alleviating: Reports: Rest Related History: Reports: Similar episode Non-Orthopedic Risk Factors: Reports: None DVT Risk Factors: Reports: None Septic Arthritis Risk Factors: Reports: None Related Surgical History: Reports: None Upper Extremity Findings: Present: Limited range of motion (left shoulder ). Absent: Swelling, Ecchymosis, Abnormal contour, Rotation, Ligamentous instability, Laceration, Erythema, Warmth, Blisters, Other joint pain, Foreign body Differential Diagnoses: Other (cervical disc disease ) Review of Systems - Review Of Systems Constitutional: Reports: No symptoms Eyes: Reports: No symptoms Ears, Nose, Mouth, Throat: Reports: No symptoms Respiratory: Reports: No symptoms Cardiac: Reports: No symptoms GI: Reports: No symptoms : Reports: No symptoms Musculoskeletal: Reports: Joint pain (left shoulder ) Skin: Reports: No symptoms Neurological: Reports: No symptoms Endocrine: Reports: No symptoms Hematologic/Lymphatic: Reports: No symptoms All Other Systems: Reviewed and Negative Past Medical History - Past Medical History Previously Healthy: Yes Endocrine: Reports: DM 2 Cardiovascular: Reports: Hypertension Respiratory: Reports: None Hematological: Reports: None Gastrointestinal: Reports: None Genitourinary: Reports: None Neuro/Psych: Reports: None Musculoskeletal: Reports: None Cancer: Reports: None - Surgical History General Surgical History: Reports: Other (left Tennis elbow repair.) - Family History Family History: Reports: None - Social History Smoking Status: Former smoker Hx Substance Use: No Alcohol Screening: None Physical Exam - Physical Exam Appearance: Well-appearing, No pain distress, Well-nourished Eyes: ELISSA, EOMI, Conjunctiva clear ENT: Ears normal, Nose normal, Oropharynx normal Respiratory: Airway patent, Breath sounds clear, Breath sounds equal, Respirations nonlabored Cardiovascular: RRR, Pulses normal, No rub, No murmur GI/: Soft, Nontender, No masses, Bowel sounds normal, No Organomegaly Musculoskeletal: Limited ROM (left shoulder ) Skin: Warm, Dry, Normal color Neurological: Sensation intact, Motor intact, Reflexes intact, Cranial nerves intact, Alert, Oriented Psychiatric: Affect appropriate, Mood appropriate Critical Care Note - Critical Care Note Total Time (mins): 0 Course - Course Vital Signs: Temp Pulse Resp BP Pulse Ox 02/09/18 08:50 97.5 F L 77 18 165/98 H 98 Departure - Departure Time of Disposition: 09:37 Disposition: HOME SELF-CARE Discharge Problem: Shoulder pain, Cervical radicular pain Instructions: Cervical Radiculopathy (ED) Condition: Good Pt referred to PMD for follow-up: Yes IPMP verified?: No Additional Instructions: Please call your Family Physician as soon as possible to schedule a follow-up appointment.you must have an MRI F [facility] [place] [place] Prescriptions: Hydrocodone/Acetaminophen [[place] 10-325 Tablet] 1 each PO Q8HR #14 tablet Allergies/Adverse Reactions: Allergies No Known Allergies Allergy (Verified 02/09/18 08:54) Home Medications: Ambulatory Orders Hydrocodone/Acetaminophen [[place] 10-325 Tablet] 1 each PO Q8HR #14 tablet
== END 2018-02-09 09:43 | disposition home or self-care (01) ==
LOC: ED 08:49
DX: M25.512 Pain in left shoulder (principal); M54.12 Radiculopathy, cervical region
CPT/HCPCS: 99282